=== PATIENT | female | born 2000 | race African-American/Black ===

== ENCOUNTER 2021-08-20 13:21 | Emergency (ER) | payer OTHER ==
[2021-08-20 13:33] VITALS: BP 103/68; PULSE 87; TEMP 98.1; BMI 25.7
[2021-08-20] MEDS ORDERED: KETOROLAC TROMETHAMINE 60 MG/2 ML VIAL IM ONE (14:51)
[2021-08-20] MEDS ORDERED: KETOROLAC TROMETHAMINE 30 MG/1 ML VIAL ONE (15:04)
== END 2021-08-20 16:16 | disposition home or self-care (01) ==
LOC: JERFT 13:21 → JER 13:21 → JERFT 16:16
PROC: 3E0233Z Introduction of Anti-inflammatory into Muscle, Percutaneous Approach (ICD-10-PCS; principal; 2021-08-20)
DX: M54.50 Low back pain, unspecified (principal); V89.2XXA Person injured in unspecified motor-vehicle accident, traffic, initial encounter
CPT/HCPCS: 72040-TC; 72100-TC-FY; 99284-25